=== PATIENT | male | born 1985 | race Caucasian/White ===

== ENCOUNTER 2023-01-25 19:27 | Outpatient (CLI) | payer OTHER, SELFPAY ==
[2023-01-29 08:16] LABS: Specimen Source Not Provided
== END 2023-01-25 19:28 | disposition home or self-care (01) ==
LOC: NFLDUCREF 19:27
PROVIDERS: PCP Family Medicine; Visit Provider Family Medicine
DX: Z11.3 Encounter for screening for infections with a predominantly sexual mode of transmission (principal); Z20.2 Contact with and (suspected) exposure to infections with a predominantly sexual mode of transmission
CPT/HCPCS: 87491; 87591